=== PATIENT | female | born 1930 | race Caucasian/White ===

== ENCOUNTER → 2017-02-14 | Outpatient (CLI) | payer OTHER ==
[~2017-02-14] MED LIST: ALLEGRA PO; ASPIRIN PO; ATENOLOL PO; BENTYL20 MG; BENTYL20 MG PO; CALCIUM 600 + D1 TAB; COLESTID PO; COREG; Calcium + Vitamin D; FIBER LAX; FOSAMAX PO; GAVISCON; GLUCOSAMINE CH1 EAC5; HYDROCODONE-APA1 T55 PO; JANTOVEN1 MG PO; LATANOPROST2.5 ML; LIPITOR PO; LISINOPRIL PO; LOMOTIL WHITE2.5 M1 PO; LOPRESSOR PO; NORVASC PO; PAIN & FEVER500 MG; PRINIVIL20 M1 PO; PROLIA60 MG/1 ML; TUSSIN DM; VITAMIN D2000 UNIT PO; WARFARIN SODIU2.5 M1; WARFARIN SODIUM1 M1 PO; ZITHROMAX; ZITHROMAX500 MG PO
== END | disposition home or self-care (01) ==
LOC: CLAB 11:09
DX: M81.0 Age-related osteoporosis without current pathological fracture (principal); Z79.899 Other long term (current) drug therapy
CPT/HCPCS: 36415; 82310; J0897

== ENCOUNTER → 2017-08-02 | Day surgery (SDC) | payer OTHER ==
--- NOTE | ~2017-08-02 | OR ---
Unit #: [id number] #: [id number] Patient: EDWIN MORALES [id number] [address] [place], [place] [address] [id number] O MR#: [id number] NAME: EDWIN MORALES. ROOM: Date of Procedure: 08/02/2017 Admission Date: 08/02/2017 Surgeon: Luca Kidd M.D. : 1930 Attending Physician: Luca Kidd M.D. Primary Care Physician: Hi Mcmahan D.O. OPERATIVE REPORT PRIMARY CARE PHYSICIAN Hi Mcmahan D.O. 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 PROCEDURE PERFORMED Colonoscopy with biopsies. POSTOPERATIVE DIAGNOSES The patient had mild sigmoid and descending colon diverticulosis. Otherwise, examination was normal up to cecum and terminal ileum. The quality of the prep was good. Multiple random colonic biopsies were obtained from throughout the colon to rule out microscopic or collagenous colitis. RECOMMENDATIONS 1. The patient is being started on Colestid 1 g p.o. t.i.d. and p.r.n. Lomotil. She will be followed up in the office in 8 to 10 weeks' time. 2. We will also follow up the results of the histology at the time of followup. SEDATION USED MAC. DESCRIPTION OF PROCEDURE Following detailed explanation of potential risks and complications of a colonoscopy, namely perforation, bleeding, and complication related to sedation, the patient was brought to GI lab and laid in the left lateral decubitus position. A digital rectal examination was performed, which was normal. Lubricated tip of the Olympus video colonoscope was inserted through the anus and advanced under direct vision. The scope was advanced past rectosigmoid into descending colon. Scant small diverticula were noted in this area. The scope tip was then navigated all the way up to cecum with visualization of the ileocecal valve and the appendiceal orifice. Preparation was excellent with good visualization and photodocumentation was obtained. Last several inches of terminal ileum were also visualized after intubation of the ileocecal valve and appeared normal. Successive segments of the colonic mucosa were examined upon withdrawal and appeared unremarkable. There being no polyps, mass lesions, or AVMs. Other than the scant diverticula seen in the sigmoid colon, no other abnormalities were noted. The patient did not have any Unit #: [id number] #: [id number] Patient: EDWIN MORALES internal hemorrhoids at the anal verge. The scope was then withdrawn and the patient returned to the recovery area. She tolerated the procedure without any postprocedure complications. Dictated by.Isabel Frank TD: 08/02/2017 12:13 JOB #: [id number] CC: Hi Mcmahan D.O. OPERATIVE REPORT Page 1 of 1 X Luca Kidd MD X PROCEDURE OPERATIVE NOTE
== END | disposition home or self-care (01) ==
LOC: COPS 06:17
DX: K52.9 Noninfective gastroenteritis and colitis, unspecified (principal); K57.30 Diverticulosis of large intestine without perforation or abscess without bleeding; I25.10 Atherosclerotic heart disease of native coronary artery without angina pectoris; I48.91 Unspecified atrial fibrillation; Z88.0 Allergy status to penicillin; Z79.82 Long term (current) use of aspirin; Z79.899 Other long term (current) drug therapy; Z98.41 Cataract extraction status, right eye; Z98.42 Cataract extraction status, left eye; Z95.2 Presence of prosthetic heart valve; Z90.721 Acquired absence of ovaries, unilateral; Z90.710 Acquired absence of both cervix and uterus
CPT/HCPCS: 88305; J1580; J3370